=== PATIENT | female | born 2000 | race African-American/Black ===

== ENCOUNTER 2021-10-23 19:05 | Emergency (ER) | payer OTHER ==
[~2021-10-23] VITALS: Ht 162.6 cm; Wt 120.2 kg
[2021-10-23 19:08] VITALS: BP 140/87
[2021-10-23] MEDS ORDERED: MEDROLDOSEPACK PO (20:10)
== END 2021-10-23 21:13 | disposition home or self-care (01) ==
LOC: ER 19:05
DX: L23.2 Allergic contact dermatitis due to cosmetics (principal)